=== PATIENT | male | born 1980 | race Caucasian/White ===

== ENCOUNTER 2018-05-28 11:17 | Emergency (ER) | payer OTHER ==
[~2018-05-28] VITALS: Ht 180.3 cm; Wt 77.1 kg
[~2018-05-28 11:17] MED LIST: DIVA500E2; LEVE250T2
--- NOTE | 2018-05-28 11:17 | NUR ---
PATIENT BIBA TO BED 10.
[2018-05-28 11:24] VITALS: BP 119/82
--- NOTE | 2018-05-28 11:29 | NUR ---
BEAR. PATIENT PRESENTS TO ED WITH POST ICTAL SEIZURE. ALERT & ORIENTED TO NAME AND PLACE. PUPILS DILATED TO 4 MM, ABLE TO TRACK AND FOLLOW. PATIENT STATES PAIN OF 0/10 AT THIS TIME. PATIENT POSITIONED FOR COMFORT; HOB ELEVATED; BEDRAILS UP X2; BED DOWN. ER MD MADE AWARE OF PT STATUS. PMH: JESSICA RUVALCABA MD RX: DILANTIN AND DEPAKOTE
--- NOTE | 2018-05-28 11:45 | NUR ---
PT WANTS TO LEAVE AMA. MD VIRK AWARE.
--- NOTE | 2018-05-28 11:50 | NUR ---
SULLY MELARA AT BEDSIDE.
[2018-05-28 12:00] VITALS: BP 119/82
--- NOTE | 2018-05-28 12:01 | NUR ---
Patient discharged with v/s stable. Written and verbal after care instructions given and explained. Patient verbalized understanding. Ambulatory with steady gait. All questions addressed prior to discharge. Advised to follow up with PMD.
== END 2018-05-28 12:01 | disposition home or self-care (01) ==
LOC: MED 11:17
DX: R56.9 Unspecified convulsions (principal); Z79.899 Other long term (current) drug therapy
CPT/HCPCS: 99283

== ENCOUNTER 2021-08-09 22:50 | Emergency (ER) | payer OTHER ==
[~2021-08-09] VITALS: Ht 170.2 cm; Wt 86.2 kg
[2021-08-09 22:50] VITALS: BP 123/72
--- NOTE | 2021-08-09 22:50 | NUR ---
41 Y/O MALE BIBA, C/O SEIZURE TONIC/CLONIC, WITNESSED BY FD LASTING APPROX 30 SECONDS. PT FOUND AT TRANSIT STOP. 911 CALLED BY PASSERBY. PT FOUND IN THE KNEELING POSITION WHILE SEIZING. NO TRAUMA NOTED. A/OX2, UNLABORED BREATHING, AMBULATORY , NO INCONTINENCE. SKIN IS PINK/WARM/DRY. PT IS COOPERATIVE. TACHYCARDIC AT 110. HX: SEIZURE NKA MED: DEPAKOTE, DILANTIN
--- NOTE | 2021-08-09 22:50 | NUR ---
PT BROUGHT TO BED 10 VIA [facility]
--- NOTE | 2021-08-09 22:55 | NUR ---
ER MD AT BEDSIDE EXAMINING PT
[2021-08-09] MEDS ORDERED: NACL 0.9% 1,000 ML IV ONE (23:10)
[2021-08-09] MEDS ORDERED: VALPROATE SODIUM 500 MG in NACL 0.9% 100 ML IV ONE (23:10)
[2021-08-09] MEDS ORDERED: LORazepam 2 MG/ML VIAL IVP ONE (23:10)
--- NOTE | 2021-08-09 23:14 | NUR ---
METAL CLEANER AT BEDSIDE
--- NOTE | 2021-08-09 23:15 | NUR ---
JENNIFER VALDEZ SIGNIFICANT OTHER [phone] CALLED REQUESTING UPDATE
[2021-08-09 23:23] LABS: BASOPHILS % (AUTO) 0.1 % (0.0-2.0); EOSINOPHILS % (AUTO) 0.2 % (0.0-4.0); HEMATOCRIT 45.9 % (36-52); HEMOGLOBIN 15.1 g/dL (12.0-18.0); LYMPHOCYTES # (AUTO) 1.3 K/uL (2.0-11.5); LYMPHOCYTES % (AUTO) 10.4 % (20.5-51.1); MEAN CORPUSCULAR HEMOGLOBIN 31 pg (27-31); MEAN CORPUSCULAR HGB CONC 33 g/dL (33-37); MEAN CORPUSCULAR VOLUME 93.4 fL (80-94); MONOCYTES # (AUTO) 0.9 K/uL (0.8-1.0); NEUTROPHILS # (AUTO) 10.4 K/uL (1.8-7.7); NEUTROPHILS % (AUTO) 82.3 % (42.2-75.2); PLATELET COUNT (AUTO) 344 K/uL (140-450); RED BLOOD CELL COUNT(AUTO) 4.91 MIL/uL (4.20-6.10); RED CELL DISTRIBUTION WIDTH 14.1 % (11.6-13.7); WHITE BLOOD COUNT (AUTO) 12.6 K/uL (4.8-10.8)
--- NOTE | 2021-08-09 23:25 | NUR ---
XRAY AT BEDSIDE
[2021-08-09 23:40] LABS: ANION GAP 18.7 (8-16); CARBON DIOXIDE 22.3 mmol/L (21-32); CREATININE 1.1 mg/dL (0.6-1.3)
[2021-08-09 23:46] LABS: PHENYTOIN (DILANTIN) < 0.5 ug/ml (10.0-20.0); VALPROIC ACID 39 ug/ml (50-100)
[2021-08-10] MEDS ORDERED: VALPROATE SODIUM 500 MG/5 ML VIAL IV ONE (00:06)
[2021-08-10 05:29] VITALS: BP 123/72
--- NOTE | 2021-08-10 05:30 | NUR ---
Patient discharged with v/s stable. Written and verbal after care instructions given and explained. Patient verbalized understanding. Ambulatory with steady gait. All questions addressed prior to discharge. Advised to follow up with PMD. A/OX4, VSS, UNLABORED BREATHING, AMBULATORY, AND CALM DEMEANOR.
== END 2021-08-10 05:30 | disposition home or self-care (01) ==
LOC: MED 22:50
DX: R56.9 Unspecified convulsions (principal); F41.9 Anxiety disorder, unspecified; F32.9 Major depressive disorder, single episode, unspecified; Z79.899 Other long term (current) drug therapy
CPT/HCPCS: 36415; 70450; 71045; 80048; 80185; 85025; 93005; 96365; 96375; 99285; G0482; J2060; J3490; J7030; Q0092

== ENCOUNTER 2021-11-01 19:25 | Emergency (ER) | payer OTHER ==
[~2021-11-01] VITALS: Ht 175.3 cm; Wt 72.6 kg
--- NOTE | 2021-11-01 19:27 | NUR ---
ERMD AT SIDE OF [facility]
--- NOTE | 2021-11-01 19:37 | NUR ---
PT TABITHAA, TO BED AT THIS TIME
[2021-11-01 19:51] VITALS: BP 111/79
[2021-11-01] MEDS ORDERED: levETIRAcetam 1,000 MG in NACL 0.9% 100 ML IV ONE (19:55)
[2021-11-01] MEDS ORDERED: NACL 0.9% 1,000 ML IV ONE (19:55)
--- NOTE | 2021-11-01 19:58 | NUR ---
41 YO M BIBA W C/O PER EMS OF [facility] TODAY. LAST SZ AT 1902. VERSED 51 MG WAS GIVEN BY EMS AT 1903. PT A/O X3 GCS 15. BS 122. DENIES FALLING OR HEAD INJURY. 20G R HAND PLACED BY EMS. PMH: [facility] V[facility]K T[facility]NER
--- NOTE | 2021-11-01 19:58 | NUR ---
PT PLACE ON 2L NC Addendum: 11/01/21 at 1958 by [email or web address] 95% 02
[2021-11-01] MEDS ORDERED: levETIRAcetam 100 MG/ML VIAL IV ONE ×2 (20:05→21:06)
[2021-11-01 20:18] LABS: BASOPHILS % (AUTO) 0.2 % (0.0-2.0); EOSINOPHILS # (AUTO) 0.1 K/uL (0-0.4); EOSINOPHILS % (AUTO) 1.1 % (0.0-4.0); HEMATOCRIT 40.3 % (36-52); HEMOGLOBIN 13.8 g/dL (12.0-18.0); LYMPHOCYTES # (AUTO) 1.4 K/uL (2.0-11.5); LYMPHOCYTES % (AUTO) 23.7 % (20.5-51.1); MEAN CORPUSCULAR HEMOGLOBIN 32 pg (27-31); MEAN CORPUSCULAR HGB CONC 34 g/dL (33-37); MEAN CORPUSCULAR VOLUME 92.9 fL (80-94); MONOCYTES # (AUTO) 0.5 K/uL (0.8-1.0); MONOCYTES % (AUTO) 7.5 % (1.7-9.3); NEUTROPHILS # (AUTO) 4.1 K/uL (1.8-7.7); NEUTROPHILS % (AUTO) 67.5 % (42.2-75.2); PLATELET COUNT (AUTO) 302 K/uL (140-450); RED BLOOD CELL COUNT(AUTO) 4.34 MIL/uL (4.20-6.10); RED CELL DISTRIBUTION WIDTH 14.3 % (11.6-13.7); WHITE BLOOD COUNT (AUTO) 6.1 K/uL (4.8-10.8)
[2021-11-01 20:32] LABS: ALBUMIN 3.4 g/dL (3.4-5.0); ANION GAP 14.3 (8-16); CARBON DIOXIDE 23.6 mmol/L (21-32); POTASSIUM 3.9 mmol/L (3.5-5.1); TOTAL BILIRUBIN 0.3 mg/dL (0.0-1.0)
[2021-11-01 20:51] LABS: APPEARANCE,URINE CLEAR (CLEAR); BILIRUBIN,URINE NEGATIVE (NEGATIVE); BLOOD, URINE NEGATIVE (NEGATIVE); COLOR,URINE YELLOW (YELLOW); LEUKOCYTE ESTERASE ,URINE NEGATIVE (NEGATIVE); NITRITE, URINE NEGATIVE (NEGATIVE); UGLUCOSE NEGATIVE (NEGATIVE)
[2021-11-01 21:02] LABS: BARBITURATE, URINE NEGATIVE ng/ml (NEG <=200)
[2021-11-01 21:03] LABS: BENZODIAZEPINE, URINE NEGATIVE ng/mL (NEG <=200); CANNABINOID, URINE POSITIVE ng/mL (NEG <=50); COCAINE, URINE NEGATIVE ng/mL (NEG <=300); OPIATE, URINE NEGATIVE ng/mL (NEG <=2000); PHENCYCLIDINE SCREEN,URINE NEGATIVE ng/mL (NEG <=25)
[2021-11-01 21:18] VITALS: BP 115/80
--- NOTE | 2021-11-01 21:18 | NUR ---
Patient does not wish to proceed with medical care recommended by DR COLLINS. Patient given information related to possible complications, up to and including , which could occur as a result of leaving hospital at this time. Patient verbalizes understanding of risks involved leaving against medical advice. Patient has signed AMA form.
== END 2021-11-01 21:18 | disposition left against medical advice (07) ==
LOC: MED 19:25
DX: R56.9 Unspecified convulsions (principal)
CPT/HCPCS: 36415; 70450; 80053; 80305; 81003; 85025; 96365; 99284; J1953; J7030

== ENCOUNTER 2021-11-29 08:27 | Emergency (ER) | payer OTHER ==
[~2021-11-29] VITALS: Ht 180.3 cm; Wt 88.5 kg
--- NOTE | 2021-11-29 08:29 | NUR ---
giorgi matamoros taken to bed 11
[2021-11-29 08:31] VITALS: BP 152/95
--- NOTE | 2021-11-29 08:34 | NUR ---
BIBMolly FROM HOME D/T 5 EPISODES OF PETIT MAL SZ WITNESSED BY GIRLFRIEND TODAY. NO ORAL TRAUMA NOTED. POSTICTAL AT TRIAGE. AAOX4. LORI PRECAUTION TAKEN. ON MONITOR. PT STATES HE HAS BEEN HAVING EPISODES FREQUENTLY LATELY. PMH: LORI RUVALCABA
[2021-11-29] MEDS ORDERED: LORazepam 2 MG/ML VIAL IVP ONE (08:50)
[2021-11-29 09:16] LABS: BASOPHILS % (AUTO) 0.3 % (0.0-2.0); EOSINOPHILS # (AUTO) 0.1 K/uL (0-0.4); EOSINOPHILS % (AUTO) 1.5 % (0.0-4.0); HEMATOCRIT 44.5 % (36-52); HEMOGLOBIN 15.2 g/dL (12.0-18.0); LYMPHOCYTES # (AUTO) 2.3 K/uL (2.0-11.5); LYMPHOCYTES % (AUTO) 34.1 % (20.5-51.1); MEAN CORPUSCULAR HEMOGLOBIN 32 pg (27-31); MEAN CORPUSCULAR HGB CONC 34 g/dL (33-37); MONOCYTES # (AUTO) 0.6 K/uL (0.8-1.0); MONOCYTES % (AUTO) 8.9 % (1.7-9.3); NEUTROPHILS # (AUTO) 3.7 K/uL (1.8-7.7); NEUTROPHILS % (AUTO) 55.2 % (42.2-75.2); PLATELET COUNT (AUTO) 303 K/uL (140-450); RED BLOOD CELL COUNT(AUTO) 4.78 MIL/uL (4.20-6.10); RED CELL DISTRIBUTION WIDTH 14.3 % (11.6-13.7); WHITE BLOOD COUNT (AUTO) 6.7 K/uL (4.8-10.8)
--- NOTE | 2021-11-29 09:17 | NUR ---
BLOOD COLLECTED BY MARINE PHOTOGRAPHER. URINE PENDING.
[2021-11-29 09:28] LABS: ALBUMIN 3.7 g/dL (3.4-5.0); ANION GAP 14.7 (8-16); ASPARTATE AMINOTRANSFERASE 22 U/L (15-37); CARBON DIOXIDE 25.7 mmol/L (21-32); CHLORIDE 103 mmol/L (98-107); CREATININE 0.8 mg/dL (0.6-1.3); GFR ARICAN-AMERICAN 136 mL/min (>90); GLUCOSE 97 mg/dL (74-106); POTASSIUM 4.4 mmol/L (3.5-5.1); SODIUM SERUM 139 mmol/L (136-145); TOTAL BILIRUBIN 0.2 mg/dL (0.0-1.0); UREA NITROGEN, BLOOD 15 mg/dL (7-18)
[2021-11-29 09:30] LABS: PHENYTOIN (DILANTIN) 0.5 ug/ml (10.0-20.0)
[2021-11-29 10:57] VITALS: BP 142/85
--- NOTE | 2021-11-29 10:57 | NUR ---
PT CALM AND SLEEPING. VSS
--- NOTE | 2021-11-29 10:58 | NUR ---
UNABLE TO PROVIDE URINE AT THIS TIME. ERMD AWARE
[2021-11-29] MEDS ORDERED: PHENYTOIN 1,000 MG in NACL 0.9% 100 ML IV ONE (11:10)
[2021-11-29] MEDS ORDERED: PHENYTOIN 250 MG/5 ML VIAL IV ONE (11:29)
--- NOTE | 2021-11-29 12:34 | NUR ---
Patient discharged with v/s stable. Written and verbal after care instructions given and explained. Patient verbalized understanding. Ambulatory with steady gait. All questions addressed prior to discharge. Advised to follow up with PMD. PENDING UBER RIDE FROM WAITING AREA
[2021-11-29 16:16] LABS: BARBITURATE, URINE NEGATIVE ng/ml (NEG <=200); BENZODIAZEPINE, URINE POSITIVE ng/mL (NEG <=200); CANNABINOID, URINE POSITIVE ng/mL (NEG <=50); COCAINE, URINE NEGATIVE ng/mL (NEG <=300); OPIATE, URINE NEGATIVE ng/mL (NEG <=2000); PHENCYCLIDINE SCREEN,URINE NEGATIVE ng/mL (NEG <=25)
== END 2021-11-29 12:33 | disposition home or self-care (01) ==
LOC: MED 08:27
DX: R56.9 Unspecified convulsions (principal); Z79.899 Other long term (current) drug therapy
CPT/HCPCS: 36415; 80053; 80185; 80305; 85025; 93005; 96365; 96375; 99284; G0482; J1165; J2060

== ENCOUNTER 2022-02-28 16:21 | Emergency (ER) | payer OTHER ==
[~2022-02-28] VITALS: Ht 180.3 cm; Wt 72.6 kg
[2022-02-28 16:46] VITALS: BP 133/75
[2022-02-28] MEDS: DIVALPROEX 500 MG TABEC PO ONE (17:25)
[2022-02-28] MEDS: NACL 0.9% 1,000 ML IV ONE (17:27)
[2022-02-28 17:30] LABS: BASOPHILS % (AUTO) 0.2 % (0.0-2.0); EOSINOPHILS % (AUTO) 0.4 % (0.0-4.0); HEMATOCRIT 44.8 % (36-52); LYMPHOCYTES # (AUTO) 1.7 K/uL (2.0-11.5); LYMPHOCYTES % (AUTO) 17.3 % (20.5-51.1); MEAN CORPUSCULAR HEMOGLOBIN 31 pg (27-31); MEAN CORPUSCULAR HGB CONC 34 g/dL (33-37); MEAN CORPUSCULAR VOLUME 92.5 fL (80-94); MONOCYTES # (AUTO) 0.7 K/uL (0.8-1.0); MONOCYTES % (AUTO) 7.4 % (1.7-9.3); NEUTROPHILS # (AUTO) 7.4 K/uL (1.8-7.7); NEUTROPHILS % (AUTO) 74.7 % (42.2-75.2); PLATELET COUNT (AUTO) 351 K/uL (140-450); RED BLOOD CELL COUNT(AUTO) 4.85 MIL/uL (4.20-6.10); RED CELL DISTRIBUTION WIDTH 14.3 % (11.6-13.7); WHITE BLOOD COUNT (AUTO) 9.9 K/uL (4.8-10.8)
[2022-02-28 17:51] LABS: ANION GAP 11.6 (8-16); CARBON DIOXIDE 27.2 mmol/L (21-32); CREATININE 0.8 mg/dL (0.6-1.3); POTASSIUM 4.8 mmol/L (3.5-5.1)
[2022-02-28 17:57] LABS: VALPROIC ACID 31 ug/ml (50-100)
[2022-02-28] MEDS ORDERED: DIVA500E2 PO (18:45)
[2022-02-28 19:11] VITALS: BP 124/89
== END 2022-02-28 19:11 | disposition home or self-care (01) ==
LOC: MED 16:21
DX: G40.909 Epilepsy, unspecified, not intractable, without status epilepticus (principal); R79.1 Abnormal coagulation profile; Z79.899 Other long term (current) drug therapy
CPT/HCPCS: 36415; 80048; 85025; 96360; 96361; 99283; G0482

== ENCOUNTER 2022-04-19 10:00 | Emergency (ER) | payer OTHER ==
[~2022-04-19] VITALS: Ht 172.7 cm; Wt 83.9 kg
[~2022-04-19 10:00] MED LIST changes: +DIVA500E2 PO
[2022-04-19] MEDS ORDERED: LORazepam 2 MG/ML VIAL ONE (10:02)
--- NOTE | 2022-04-19 10:04 | NUR ---
PT BIBA DRAW SHEETED TO BED 6
[2022-04-19 10:11] VITALS: BP 155/87
[2022-04-19] MEDS ORDERED: DIVA500T1 PO (10:22)
[2022-04-19] MEDS ORDERED: CYCL-711 PO (10:22)
[2022-04-19] MEDS ORDERED: CLON0.5T PO (10:22)
[2022-04-19] MEDS ORDERED: CARB200T4 PO (10:22)
[2022-04-19] MEDS ORDERED: VORT20TA PO (10:22)
[2022-04-19] MEDS ORDERED: PHEN100C3 PO ×2 (10:22→14:05)
[2022-04-19] MEDS ORDERED: LACO100T PO (10:22)
[2022-04-19] MEDS: LORazepam 2 MG/ML VIAL IVP ONE (10:29)
--- NOTE | 2022-04-19 11:05 | NUR ---
[facility]
[2022-04-19 11:49] LABS: VALPROIC ACID 35 ug/ml (50-100)
--- NOTE | 2022-04-19 12:00 | NUR ---
Pt is awake/alert and oriented x 4. MD and myself, spoke with pt to obtain hx and assess pt. Pt does not remember coming in to ed. Pt speaks in complete sentences. No complaints at this time.
[2022-04-19] MEDS ORDERED: VALPROIC ACID 250 MG/5 ML UDC PO SCH (13:15)
[2022-04-19] MEDS: PHENYTOIN 1,000 MG in NACL 0.9% 100 ML IV ONE (13:54)
[2022-04-19 15:16] VITALS: BP 121/71
--- NOTE | 2022-04-19 15:16 | NUR ---
IV removed, catheter intact and site benign. Applied folded 4x4 gauze and tape to stop bleeding.
--- NOTE | 2022-04-19 15:16 | NUR ---
Patient discharged with v/s stable. Written and verbal after care instructions ABOUT SEIZURES given and explained. Patient alert, oriented and verbalized understanding of instructions. Ambulatory with steady gait. All questions addressed prior to discharge. ID band removed. Patient advised to follow up with PMD. Rx of DILANTIN given. Patient educated on indication of medication including possible reaction and side effects. Opportunity to ask questions provided and answered.
== END 2022-04-19 15:16 | disposition home or self-care (01) ==
LOC: MED 10:00
DX: R56.9 Unspecified convulsions (principal); Z79.899 Other long term (current) drug therapy
CPT/HCPCS: 36415; 80156; 80185; 96365; 96375; 99284; J1165; J2060

== ENCOUNTER 2022-04-24 07:44 | Emergency (ER) | payer OTHER ==
[~2022-04-24] VITALS: Ht 172.7 cm; Wt 85.3 kg
[~2022-04-24 07:44] MED LIST changes: +CARB200T4 PO; +CLON0.5T PO; +CYCL-711 PO; -DIVA500E2; +DIVA500T1 PO; +LACO100T PO; -LEVE250T2; +PHEN100C3 PO; +VORT20TA PO
--- NOTE | 2022-04-24 07:47 | NUR ---
PATIENT BIBA TO BED 5.
--- NOTE | 2022-04-24 07:49 | NUR ---
Patient being evaluated by physician at bedside.
[2022-04-24] MEDS ORDERED: levETIRAcetam 1,000 MG in NACL 0.9% 100 ML IV ONE (07:55)
[2022-04-24] MEDS ORDERED: LORazepam 2 MG/ML VIAL IVP ONE (07:55)
[2022-04-24 08:00] VITALS: BP 130/84
--- NOTE | 2022-04-24 08:00 | NUR ---
ASSUMED PATIENT CARE, NURSING ASSESSMENT COMPLETED.
[2022-04-24 08:41] LABS: BASOPHILS % (AUTO) 0.4 % (0.0-2.0); EOSINOPHILS % (AUTO) 0.6 % (0.0-4.0); HEMATOCRIT 43.4 % (36-52); HEMOGLOBIN 14.4 g/dL (12.0-18.0); LYMPHOCYTES # (AUTO) 2.3 K/uL (2.0-11.5); LYMPHOCYTES % (AUTO) 33.3 % (20.5-51.1); MEAN CORPUSCULAR HEMOGLOBIN 31 pg (27-31); MEAN CORPUSCULAR HGB CONC 33 g/dL (33-37); MEAN CORPUSCULAR VOLUME 92.7 fL (80-94); MONOCYTES # (AUTO) 0.5 K/uL (0.8-1.0); NEUTROPHILS # (AUTO) 3.9 K/uL (1.8-7.7); NEUTROPHILS % (AUTO) 57.7 % (42.2-75.2); PLATELET COUNT (AUTO) 360 K/uL (140-450); RED BLOOD CELL COUNT(AUTO) 4.67 MIL/uL (4.20-6.10); RED CELL DISTRIBUTION WIDTH 14.5 % (11.6-13.7); WHITE BLOOD COUNT (AUTO) 6.8 K/uL (4.8-10.8)
[2022-04-24 08:52] LABS: ALBUMIN 3.9 g/dL (3.4-5.0); CARBON DIOXIDE 27.5 mmol/L (21-32); CREATININE 0.8 mg/dL (0.6-1.3); POTASSIUM 4.5 mmol/L (3.5-5.1); TOTAL BILIRUBIN 0.2 mg/dL (0.0-1.0)
[2022-04-24] MEDS ORDERED: KEP500 PO (09:07)
--- NOTE | 2022-04-24 10:10 | NUR ---
DISPO AND MEDICAL DECISION MAKING DC HOME WITH E-RX AND AFTERCARE INSTRUCTIONS. PATIENT DC HOME AMBULATORY TO UBER, VS WNL. PATIENT IS AO X 4, VS WNL. ALL INSTRUCTIONS UNDERSTOOD BY PATIENT ACCORDINGLY.
[2022-04-24 10:17] VITALS: BP 115/60
== END 2022-04-24 10:10 | disposition home or self-care (01) ==
LOC: MED 07:44
DX: G40.89 Other seizures (principal)
CPT/HCPCS: 36415; 71045; 80053; 80185; 85025; 93005; 96365; 96375; 99285; J1953; J2060

== ENCOUNTER 2022-04-27 05:54 | Inpatient (IN) | payer OTHER ==
[~2022-04-27] VITALS: Ht 177.8 cm; Wt 90.7 kg
[2022-04-27 05:54] VITALS: BP 136/72
[~2022-04-27 05:54] MED LIST changes: +KEP500 PO
--- NOTE | 2022-04-27 06:00 | NUR ---
PT BEAR ALS. TAKEN TO BED 8
--- NOTE | 2022-04-27 06:00 | NUR ---
BIBA TO BED 8 WITH C/O POSSIBLE SZ ACTIVITY. PT HAS H/O SZ AND TOLD MEDICS HE HAD BEEN HAVING FREQUENT SEIZURES, SINCE YESTERDAY AND IS AFRAID THIS MIGHT LEAD TO A BIGGER SEIZURE. NO SZ ACTIVITY NOTED EN ROUTE OR UPON ARRIVAL. NO TRAUMA, NO INJURY, NO INCONTINENCE
[2022-04-27] MEDS ORDERED: DOPPLER MC ONE (06:32)
--- NOTE | 2022-04-27 07:05 | NUR ---
Alcira rose in [facility] - 04/27/22 at [address] MALINDA STOKES
--- NOTE | 2022-04-27 07:05 | NUR ---
TO CT VIA [facility]
--- NOTE | 2022-04-27 07:24 | NUR ---
Report and continuation of care received from SIN Anderson.
--- NOTE | 2022-04-27 07:35 | NUR ---
Received patient resting in semi-fowlers position with air sampling and monitoring in place. Patient A&Ox4, denies any pain, nausea, medical complaint at this time.
[2022-04-27 07:50] LABS: BARBITURATE, URINE NEGATIVE ng/ml (NEG <=200)
[2022-04-27 07:51] LABS: BENZODIAZEPINE, URINE NEGATIVE ng/mL (NEG <=200); CANNABINOID, URINE POSITIVE ng/mL (NEG <=50); COCAINE, URINE NEGATIVE ng/mL (NEG <=300)
[2022-04-27 07:52] LABS: OPIATE, URINE NEGATIVE ng/mL (NEG <=2000); PHENCYCLIDINE SCREEN,URINE NEGATIVE ng/mL (NEG <=25)
[2022-04-27 08:40] LABS: BASOPHILS % (AUTO) 0.5 % (0.0-2.0); EOSINOPHILS % (AUTO) 0.2 % (0.0-4.0); HEMATOCRIT 39.6 % (36-52); HEMOGLOBIN 13.1 g/dL (12.0-18.0); LYMPHOCYTES # (AUTO) 1.1 K/uL (2.0-11.5); LYMPHOCYTES % (AUTO) 16.2 % (20.5-51.1); MEAN CORPUSCULAR HEMOGLOBIN 31 pg (27-31); MEAN CORPUSCULAR HGB CONC 33 g/dL (33-37); MEAN CORPUSCULAR VOLUME 92.2 fL (80-94); MONOCYTES # (AUTO) 0.4 K/uL (0.8-1.0); MONOCYTES % (AUTO) 5.8 % (1.7-9.3); NEUTROPHILS % (AUTO) 77.3 % (42.2-75.2); PLATELET COUNT (AUTO) 94 K/uL (140-450); RED CELL DISTRIBUTION WIDTH 14.2 % (11.6-13.7); WHITE BLOOD COUNT (AUTO) 6.5 K/uL (4.8-10.8)
[2022-04-27 08:41] LABS: ALBUMIN 4.1 g/dL (3.4-5.0); ANION GAP 12.2 (8-16); CARBON DIOXIDE 26.2 mmol/L (21-32); CREATININE 0.7 mg/dL (0.6-1.3); POTASSIUM 4.4 mmol/L (3.5-5.1); TOTAL BILIRUBIN 0.2 mg/dL (0.0-1.0)
[2022-04-27] MEDS ORDERED: LORazepam 2 MG/ML VIAL ONE (09:52)
[2022-04-27] MEDS ORDERED: levETIRAcetam 1,500 MG in NACL 0.9% 100 ML IV ONE (09:55)
[2022-04-27] MEDS ORDERED: LORazepam 2 MG/ML VIAL IVP ONE (09:55)
--- NOTE | 2022-04-27 09:56 | NUR ---
PATIENT WITH ONE EPISODE OF FULL TONIC/CLONIC SEIZURE LASTING [address] TAYLOR MADE AWARE ORDERS TO BE PLACED. PLACED IN LEFT LYING POSITION. SPO2 84% ON ROOM AIR; ON 15L NRB SPO2 98% AT THIS TIME
[2022-04-27 11:20] VITALS: BP 117/78
--- NOTE | 2022-04-27 11:20 | NUR ---
Patient A&Ox4, resting in semi-fowlers position with quality assurance monitor body in place. Seizure precautions remain in place.
[2022-04-27] MEDS ORDERED: LACO1TAB PO (12:04)
[2022-04-27] MEDS ORDERED: KEP500 PO (12:04)
[2022-04-27] MEDS ORDERED: DIVA250T PO (12:04)
[2022-04-27] MEDS ORDERED: VORT20TA PO (12:04)
[2022-04-27] MEDS ORDERED: MAG SULF 2000 MG/WATER PREMIX 50 ML IV PRN (12:20)
[2022-04-27] MEDS ORDERED: NACL 0.9% 1,000 ML IV SCH (12:20)
[2022-04-27] MEDS ORDERED: ONDANSETRON 4 MG/2 ML VIAL IVP PRN (12:20)
[2022-04-27] MEDS ORDERED: POTASSIUM CHLORIDE 10 MEQ TABER PO PRN (12:20)
[2022-04-27] MEDS ORDERED: HYDROcodone/APAP 5/325 MG 1 TAB TAB PO PRN (12:20)
[2022-04-27] MEDS ORDERED: MORPHINE SULFATE 4 MG/ML SYR IVP PRN (12:20)
[2022-04-27] MEDS ORDERED: ACETAMINOPHEN 325 MG TAB PO PRN (12:20)
[2022-04-27] MEDS ORDERED: KCL 20 MEQ/WATER INJ PREMIX 200 ML IV PRN (12:20)
[2022-04-27] MEDS ORDERED: MAGNESIUM OXIDE 400 MG TAB PO PRN (12:20)
--- NOTE | 2022-04-27 14:22 | NUR ---
Dom from pharmacy called for verification for Vinpat. Spoke with patient who verified Vinpat 100mg BID.
--- NOTE | 2022-04-27 14:45 | NUR ---
Patient will be admitted to care of Dr. Figueroa. Admited to Telemetry. Will go to room 123A. Belongings list completed. Report to SIN Yoo.
[2022-04-27] MEDS ORDERED: LORazepam 2 MG/ML VIAL IVP PRN (16:05)
--- NOTE | 2022-04-27 16:47 | NUR ---
PATIENT HAS BEEN SCREENED AND CATEGORIZED MODERATE NUTRITION RISK. PATIENT WILL BE SEEN WITHIN 3-5 DAYS OF ADMISSION. REVIEWED BY JOS RICHTER RD
--- NOTE | 2022-04-27 18:42 | NUR ---
04/27/2022 18:10: IV DISCONTINUED, CATHETER INTACT. MANAGER STEEL RETRIEVED. PT AMBULATED TO FRONT DOOR WITH A STEADY GAIT. NO C/O PAIN, SOB, NO GUARDING OR GRIMACING. NO ACUTE DISTRESS NOTED AT THIS TIME. [id number].
[2022-04-27] MEDS ORDERED: DIVALPROEX SODIUM 500 MG PO SCH (21:00)
[2022-04-27] MEDS ORDERED: LACOSAMIDE 100 MG PO SCH (21:00)
[2022-04-27] MEDS ORDERED: DIVALPROEX 500 MG TABEC PO SCH (21:00)
[2022-04-27] MEDS ORDERED: LACOSAMIDE PO SCH (21:00)
[2022-04-27] MEDS ORDERED: levETIRAcetam 500 MG TAB PO SCH (21:00)
== END 2022-04-27 18:00 | disposition left against medical advice (07) | DRG 53 ==
LOC: MED 05:54 → MTU 12:20
PROVIDERS: ADMIT Hospitalist; ATTEND Hospitalist
DX: G40.909 Epilepsy, unspecified, not intractable, without status epilepticus (principal); E83.51 Hypocalcemia; F32.A Depression, unspecified; Z20.822 Contact with and (suspected) exposure to COVID-19
CPT/HCPCS: 36415; 70450; 80053; 80305; 85025; 87081; 96365; 96375; 99285; J1953; J2060